=== PATIENT | male | born 1955 | race Two or more races ===

== ENCOUNTER 2024-02-14 08:29 | Outpatient (CLI) | payer OTHER | END 2024-02-14 08:38 | disposition home or self-care (01) | LOC: SONOGRAMA 08:29 | PROVIDERS: ATTEND Pathology Anatomic Pathology & Clinical Pathology | DX: D34 Benign neoplasm of thyroid gland (principal); E06.3 Autoimmune thyroiditis; E03.9 Hypothyroidism, unspecified ==